=== PATIENT | female | born 1970 | race Hispanic/Latino ===

== ENCOUNTER 2018-02-05 20:55 | Emergency (ER) | payer OTHER ==
[2018-02-05] MEDS ORDERED: NA CHLORIDE 0.9% 1,000 ML ONE (21:53)
[2018-02-05] MEDS ORDERED: CLINDAMYCIN 600MG/D5W 600 MG/50 ML BAG IV ONE (21:53)
[2018-02-05 22:40] LABS: Absolute Lymphocytes (CBC) 2.8 K/uL (0.7-4.9); Absolute Monocytes 0.7 K/uL (0.1-1.3); Basophils % 0.4 % (0-1.3); Hematocrit 38.8 % (36.0-45.0); Lymphocytes % 23.8 % (15.3-44.8); MCV 92.9 fL (80-100); Monocytes % 6.1 % (3.3-12.3); RBC Red Blood Cell Count 4.18 M/uL (3.86-4.86)
[2018-02-05 22:49] LABS: BUN Blood Urea Nitrogen 8 mg/dL (7-18); Bicarbonate 24 mmol/L (21-32); Glucose Level 102 mg/dL (74-106); Potassium 3.6 mmol/L (3.5-5.1); Sodium Level 140 mmol/L (136-145)
[2018-02-05] MEDS ORDERED: KETOROLAC 30 MG/ML INJ ONE (22:51)
--- NOTE | 2018-02-06 01:19 | ER ---
Nurse's Notes [facility] Name: Luis Castro Age: 47 yrs Sex: Female : 1970 Arrival Date: 02/05/2018 Time: 20:58 Bed 26 Private MD: Unknown, Unknown Diagnosis: Periapical abscess without sinus;Acute maxillary sinusitis, unspecified Presentation: 02/05 21:11 Presenting complaint: Patient states: She has swelling in right side of her face that aj1 started and gotten progressively worse. She was a dentist yesterday but she told her to follow up with someone else to see if she needs a root canal and started her on amoxicillin, but it hasn't been helping and now she feels like the swelling is traveling down into her neck. Reports difficulty swallowing. Denies shortness of breath. Breath sounds CTA. Transition of care: patient was not received from another setting of care. Onset of symptoms was February 2018. Risk Assessment: Do you want to hurt yourself or someone else? Patient reports no desire to harm self or others. Initial Sepsis Screen: Does the patient meet any 2 criteria? No. Patient's initial sepsis screen is negative. Does the patient have a suspected source of infection? No. Patient's initial sepsis screen is negative. Care prior to arrival: None. 21:11 Method Of Arrival: Ambulatory [facility] 21:11 Acuity: NGUYEN 3 aj1 Triage Assessment: 21:17 General: Appears in no apparent distress. comfortable, Behavior is calm, cooperative, aj1 appropriate for age. Pain: Complains of pain in right cheek, right ear, right hindu, right jaw and right side of neck Pain currently is 8 out of 10 on a pain scale. EENT: Reports difficulty swallowing. Neuro: Level of Consciousness is awake, alert, obeys commands. Cardiovascular: Patient's skin is warm and dry. Respiratory: Airway is patent Respiratory effort is even, unlabored, Respiratory pattern is regular, symmetrical, Breath sounds are clear bilaterally. Denies shortness of breath. 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 - Social history:: Smoking status: Patient uses tobacco products, smokes one-half pack cigarettes per day. - Ebola Screening: : Patient denies travel to an Ebola-affected area in the 21 days before illness onset. Screenin:43 Abuse screen: Denies threats or abuse. Nutritional screening: No deficits noted. bb Tuberculosis screening: No symptoms or risk factors identified. Fall Risk None identified. Assessment: 21:43 Reassessment: No changes from previously documented assessment. see triage assessment. bb EENT: Dental caries noted in lower right second molar (#31) Throat is clear. 22:45 Reassessment: Patient is alert, oriented x 3, equal unlabored respirations, skin lp1 warm/dry/pink. Patient states pain to right side of face continued; Provider notified. 23:45 Reassessment: Patient appears in no apparent distress at this time. Patient and/or lp1 family updated on plan of care and expected duration. Pain level reassessed. Aware of waiting for CT results. 02/06 00:45 Reassessment: Dr. Levi at bedside to discuss results with patient and family; Declines lp1 to have I\T\D performed for relief. 01:38 Reassessment: Patient agrees to have I\T\D performed at this time. [facility] Vital Signs: 02/05 21:17 BP 134 / 88; Pulse 70; Resp 18; Temp 97.8(TE); Pulse Ox 98% on R/A; Weight 79.83 kg aj (R); Height 5 ft. 5 in. (165.10 cm) (R); Pain 8/10; 22:00 BP 119 / 90; Pulse 65; Resp 16; Pulse Ox 99% on R/A; lp1 23:00 BP 127 / 83; Pulse 63; Resp 16; Pulse Ox 99% on R/A; lp1 02/06 00:15 BP 121 / 78; Pulse 65; Resp 16; Pulse Ox 100% on R/A; lp1 02:25 BP 114 / 75; Pulse 68; Resp 16; Pulse Ox 100% on R/A; Pain 7/10; lp1 02/05 21:17 Body Mass Index 29.29 (79.83 kg, 165.10 cm) [facility] ED Course: 02/05 20:58 Patient arrived in ED. mr 20:59 Unknown, Unknown is Private Physician. mr 21:17 Triage completed. aj1 21:17 Arm band placed on Patient placed in waiting room, Patient notified of wait time. aj1 21:38 Carlota Hernandez [facility]C [facility]. snw 21:39 Doug Levi MD is Attending Physician. snw 21:43 Patient has correct armband on for positive identification. Bed in low position. Call bb light in reach. Side rails up X 1. Adult w/ patient. Pulse ox on. NIBP on. 21:47 Loraine Alfredo, LITZY is Primary Nurse. bb 22:00 First set of blood cultures drawn by me. Inserted saline lock: 20 gauge in right wrist, bb using aseptic technique. Blood collected. 22:10 Initial lab(s) drawn, by me, sent to lab. Second set of blood cultures drawn by me. bb 23:[address] via wheelchair. kw1 23:54 CT Soft Tissue Neck W/contr In Process Unspecified. EDMS 23:56 CT completed. Patient tolerated procedure well. Patient moved back from CT. kw1 02/06 01:57 Assist provider with I \T\ D: of an abscess on upper right of mouth Performed by Doug Levi MD Culture sent to lab. Wound packed. 4X4s. 02:25 IV discontinued, No redness/swelling at site. Pressure dressing applied. lp1 Administered Medications: 02/05 22:05 Drug: NS 0.9% 1000 ml Route: IV; Rate: 125 ml/hr; Site: right wrist; bb 02/06 02:27 Follow up: IV Status: IV converted to saline lock lp1 02/05 22:15 Drug: Clindamycin 600 mg Route: IVPB; Infused Over: 30 mins; Site: right wrist; bb 22:42 Follow up: IV Status: Completed infusion; IV Intake: 50ml bb 22:50 Drug: TORadol 30 mg Route: IVP; Site: right wrist; lp1 02/06 00:00 Follow up: Response: No adverse reaction lp1 01:28 CANCELLED (Physician Discretion): fentaNYL (PF) 50 mcg IM once lp1 01:38 Drug: Demerol 50 mg Route: IVP; Site: right wrist; lp1 01:58 Follow up: Response: Pain is decreased lp1 Intake: 02/05 22:42 IV: 50ml; Total: 50ml. bb Outcome: 02/06 01:19 Discharge ordered by . snw 02:26 Discharged to home ambulatory, with significant other. lp1 02:26 Condition: good 02:26 Discharge instructions given to patient, significant other, Instructed on discharge instructions, follow up and referral plans. medication usage, Demonstrated understanding of instructions, follow-up care, medications, Prescriptions given X 3. 02:36 Patient left the ED. lp1 Signatures: Dispatcher [employer] EDMS Joselyn Joyce, LITZY RN aj1 Carlota Hernandez, DEAN OF WOMEN-C DEAN OF WOMEN-Csnw Natali Patel mr Loraine Alfredo RN RN bb Blanca Tinsley RN RN lp1 Jovita Carroll kw1 Corrections: (The following items were deleted from the chart) 01:57 00:42 No provider procedures requiring assistance completed. lp1 lp1 02:36 02:26 Discharge instructions given to patient, significant other, Instructed on lp1 discharge instructions, follow up and referral plans. medication usage, Demonstrated understanding of instructions, follow-up care, medications, Prescriptions given X 2, lp1
--- NOTE | 2018-02-06 01:19 | EDPHYS ---
Physician Documentation [facility] Name: Luis Castro Age: 47 yrs Sex: Female : 1970 Arrival Date: 02/05/2018 Time: 20:58 Bed 26 Private MD: Unknown, Unknown ED Physician Doug Levi HPI: 02/05 23:24 This 47 yrs old Female presents to ER via Ambulatory with complaints of Facial snw Swelling, Sore Throat. 23:24 The patient presents with swelling. The problem is located in the lower right second snw molar (#31) and right side of neck and face. Onset: The symptoms/episode began/occurred suddenly, and became worse and became persistent. Duration: The symptoms are continuous. Associated signs and symptoms: Pertinent positives: swelling, facial. Severity of symptoms: At their worst the symptoms were mild, moderate. The patient has not experienced similar symptoms in the past. The patient has been recently seen by a physician: the patient's primary care provider, 1 day(s) ago. 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 - Social history:: Smoking status: Patient uses tobacco products, smokes one-half pack cigarettes per day. - Ebola Screening: : Patient denies travel to an Ebola-affected area in the 21 days before illness onset. ROS: 23:04 Constitutional: Negative for fever, chills, and weight loss, Eyes: Negative for injury, snw pain, redness, and discharge, Cardiovascular: Negative for chest pain, palpitations, and edema, Respiratory: Negative for shortness of breath, cough, wheezing, and pleuritic chest pain, Abdomen/GI: Negative for abdominal pain, nausea, vomiting, diarrhea, and constipation, Back: Negative for injury and pain, : Negative for injury, bleeding, discharge, and swelling, MS/Extremity: Negative for injury and deformity, Skin: Negative for injury, rash, and discoloration, Neuro: Negative for headache, weakness, numbness, tingling, and seizure. 23:04 ENT: Positive for sinus pain, sore throat. 23:04 Neck: Positive for swelling, difficulty swallowing. Exam: 22:23 Constitutional: This is a well developed, well nourished patient who is awake, alert, snw and in no acute distress. Eyes: Pupils equal round and reactive to light, extra-ocular motions intact. Lids and lashes normal. Conjunctiva and sclera are non-icteric and not injected. Cornea within normal limits. Periorbital areas with no swelling, redness, or edema. ENT: Nares patent. No nasal discharge, no septal abnormalities noted. Tympanic membranes are normal and external auditory canals are clear. Oropharynx with no redness, swelling, or masses, exudates, or evidence of obstruction, uvula midline. Mucous membranes moist. RIght upper molar with temporary crown, lower second molar with gingival irritation. Pt denies tenderness, fever. Taking amoxil for 24 hours Neck: Trachea midline, no thyromegaly or masses palpated, and no cervical lymphadenopathy. Supple, full range of motion without nuchal rigidity, or vertebral point tenderness. No Meningismus. 22:23 Chest/axilla: Normal chest wall appearance and motion. Nontender with no deformity. No lesions are appreciated. Cardiovascular: Regular rate and rhythm with a normal S1 and S2. No gallops, murmurs, or rubs. Normal PMI, no JVD. No pulse deficits. Respiratory: Lungs have equal breath sounds bilaterally, clear to auscultation and percussion. No rales, rhonchi or wheezes noted. No increased work of breathing, no retractions or nasal flaring. Abdomen/GI: Soft, non-tender, with normal bowel sounds. No distension or tympany. No guarding or rebound. No evidence of tenderness throughout. Back: No spinal tenderness. No costovertebral tenderness. Full range of motion. Skin: Warm, dry with normal turgor. Normal color with no rashes, no lesions, and no evidence of cellulitis. MS/ Extremity: Pulses equal, no cyanosis. Neurovascular intact. Full, normal range of motion. Neuro: Awake and alert, GCS 15, oriented to person, place, time, and situation. Cranial nerves II-XII grossly intact. Motor strength 5/5 in all extremities. Sensory grossly intact. Cerebellar exam normal. Normal gait. Psych: Awake, alert, with orientation to person, place and time. Behavior, mood, and affect are within normal limits. 22:23 Head/face: Noted is swelling, that is moderate, of the right cheek. Vital Signs: 21:17 BP 134 / 88; Pulse 70; Resp 18; Temp 97.8(TE); Pulse Ox 98% on R/A; Weight 79.83 kg aj1 (R); Height 5 ft. 5 in. (165.10 cm) (R); Pain 8/10; 22:00 BP 119 / 90; Pulse 65; Resp 16; Pulse Ox 99% on R/A; lp1 23:00 BP 127 / 83; Pulse 63; Resp 16; Pulse Ox 99% on R/A; lp1 02/06 00:15 BP 121 / 78; Pulse 65; Resp 16; Pulse Ox 100% on R/A; lp1 02:25 BP 114 / 75; Pulse 68; Resp 16; Pulse Ox 100% on R/A; Pain 7/10; lp1 02/05 21:17 Body Mass Index 29.29 (79.83 kg, 165.10 cm) [facility] Procedures: 01:52 I \T\ D: Incision and drainage was performed for an abscess of the right right upper rn molar/gingival region Anesthetized with nothing. Incised with 18g needle. Drained moderate amount purulent fluid. serosanguinous fluid. Dressing: sterile 4x4 gauze, the patient tolerated the procedure well. MDM: 02/05 21:44 Patient medically screened. snw 02/06 01:18 ED course: Pt with periapical abscess, and maxillary abscess, recommended I\T\D here, rn patient refuses, states is seeing her dentist again on Wednesday (tomorrow), and would rather do it there all at once. Has had intubation before and thyroid procedure which may explain vocal cord finding on ct, is otherwise asymptomatic, recommended outpt ENT f/u. . 01:23 Data reviewed: vital signs, nurses notes. Data interpreted: Pulse oximetry: on room air snw is 100 %. Interpretation: normal. Counseling: I had a detailed discussion with the patient and/or guardian regarding: the historical points, exam findings, and any diagnostic results supporting the discharge/admit diagnosis, lab results, radiology results, the need for outpatient follow up, to return to the emergency department if symptoms worsen or persist or if there are any questions or concerns that arise at home. Special discussion: Based on the history and exam findings, there is no indication for further emergent testing or inpatient evaluation. I discussed with the patient/guardian the need to see a dentist for further evaluation of the symptoms. I discussed with the patient/guardian the need to see the ENT specialist for further evaluation of the symptoms. I discussed with the patient/guardian the need to see the primary care provider for further evaluation of the symptoms. 01:52 ED course: Convinced patient of letting me do I\T\D, 18g needle used, drained moderate rn amount of purulence and sanguinous fluid, + moderate relief. . 02/05 21:42 Order name: CBC with Diff; Complete Time: 22:43 snw 02/05 21:42 Order name: Chem 7; Complete Time: 22:59 snw 02/05 21:42 Order name: Lactate; Complete Time: 22:59 snw 02/05 21:42 Order name: Blood Culture Adult (2) [facility] 02/05 23:04 Order name: CT Soft Tissue Neck W/contr snw 02/06 01:51 Order name: Wound Culture lp1 Administered Medications: 02/05 22:05 Drug: NS 0.9% 1000 ml Route: IV; Rate: 125 ml/hr; Site: right wrist; 02/06 02:27 Follow up: IV Status: IV converted to saline lock 1 02/05 22:15 Drug: Clindamycin 600 mg Route: IVPB; Infused Over: 30 mins; Site: right wrist; 22:42 Follow up: IV Status: Completed infusion; IV Intake: 50ml 22:50 Drug: TORadol 30 mg Route: IVP; Site: right wrist; lp1 02/06 00:00 Follow up: Response: No adverse reaction lp1 01:28 CANCELLED (Physician Discretion): fentaNYL (PF) 50 mcg IM once lp1 01:38 Drug: Demerol 50 mg Route: IVP; Site: right wrist; lp1 01:58 Follow up: Response: Pain is decreased lp1 Disposition: 06:58 Co-signature as Attending Physician, Doug Levi MD. rn Disposition: 02/06/18 01:19 Discharged to Home. Impression: Periapical abscess without sinus, Acute maxillary sinusitis, unspecified. - Condition is Stable. - Discharge Instructions: Dental Abscess, Dental Pain, Sinusitis, Adult, Root Canal, Diet and Dental Disease. - Prescriptions for chlorhexidine gluconate 0.12 % Mucous Membrane mouthwash - place 15 milliliter by MUCOUS MEMBRANE route 2 times per day (after meals), swish in mouth for 30 seconds then spit out; 480 milliliter. Clindamycin HCl 300 mg Oral Capsule - take 1 capsule by ORAL route every 6 hours for 10 days; 40 capsule. Diclofenac Sodium 75 mg Oral Tablet Sustained Release - take 1 tablet by ORAL route 2 times per day; 30 tablet. - Medication Reconciliation Form, Thank You Letter, Antibiotic Education, Prescription Opioid Use, Work release form form. - Follow up: Private Physician; When: 1 - 2 days; Reason: Recheck today's complaints, Continuance of care, Re-evaluation by your physician. Follow up: Emergency Department; When: As needed; Reason: Worsening of condition. Signatures: Dispatcher [employer] EDMS Joselyn Joyce RN RN aj1 Carlota Hernandez, ANDRADE-C CIVIL TECHNICIAN-Csnw Loraine Alfredo RN RN bb Doug Levi MD MD rn Pena, Laura, RN RN lp1 Corrections: (The following items were deleted from the chart) 01:28 01:23 fentaNYL (PF) 50 mcg IM once ordered. snw lp1 02:36 01:19 02/06/2018 01:19 Discharged to Home. Impression: Periapical abscess without lp1 sinus; Acute maxillary sinusitis, unspecified. Condition is Stable. Forms are Medication Reconciliation Form, Thank You Letter, Antibiotic Education, Prescription Opioid Use. Follow up: Private Physician; When: 1 - 2 days; Reason: Recheck today's complaints, Continuance of care, Re-evaluation by your physician. Follow up: Emergency Department; When: As needed; Reason: Worsening of condition. snw
[2018-02-06] MEDS ORDERED: FENTANYL CITR 100 MCG/2 ML ONE (01:25)
[2018-02-06] MEDS ORDERED: MEPERIDINE HCL 50 MG/ML AMP ONE (01:34)
--- NOTE | 2018-02-06 08:51 | RAD REPORT ---
EXAM DESCRIPTION: CT - Soft Tissue Neck W/Contr - 02/06/2018 6:21 am CLINICAL HISTORY: Neck pain and neck swelling since COMPARISON: 2014 TECHNIQUE: Computed axial tomography of the neck was obtained. 50 cc Isovue-300 administered intrave nously. Coronal and sagittal reconstruction was performed A preliminary report was generated by [facility] and reviewed prior to dictation All CT scans are performed using dose optimization technique as appropriate and may include automated exposure control or mA/KV adjustment according to patient size. FINDINGS: Fullness is present within the left tongue base. The remainder of the pharynx, larynx and subglottic trachea are unremarkable. A lucency is present within a right mandibular molar with surrounding edema within the subcutaneous t issues. A 2 x 0.5 centimeter fluid collection lies within the soft tissues superficial to the right maxillary sinus. The parotid, submandibular glands are unremarkable. The right lobe of the thyroid is mildly enlarged Mild bilateral neck lymphadenopathy is seen. Soft tissue is present within the right maxillary sinus extending into the right nasal cavity without significant change may represent an antrochoanal polyp IMPRESSION: Fullness within the left tongue base probably representing a mass. Direct visualization is recommended Right mandibular tooth abscess with 2 x 0.5 centimeter abscess within the soft tissues superficial to the right maxillary sinus Mild neck lymphadenopathy
== END 2018-02-06 02:36 | disposition home or self-care (01) ==
LOC: ER 20:55
PROC: 0W9 Anatomical Regions, General, Drainage (ICD-10-PCS; principal; 2018-02-06)
DX: K04.7 Periapical abscess without sinus (principal); J01.00 Acute maxillary sinusitis, unspecified; F17.210 Nicotine dependence, cigarettes, uncomplicated; Z88.6 Allergy status to analgesic agent
CPT/HCPCS: 36415; 70491; 80048; 83605; 85025; 87040; 87070; 87205; 96361; 96365; 96375; 99285; J2175; J3010; J7030; Q9967